=== PATIENT | male | born 1995 | race Caucasian/White ===

== ENCOUNTER 2017-08-13 09:37 | Emergency (ER) | payer OTHER, MEDICAID, SELFPAY ==
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
== END 2017-08-13 09:45 | disposition left against medical advice (07) ==
DX: H92.09 Otalgia, unspecified ear (principal)

== ENCOUNTER 2017-12-10 16:32 | Emergency (ER) | payer OTHER, MEDICAID, SELFPAY ==
[2017-12-10 16:43] VITALS: BP 125/77; PULSE 121; RESP 14; TEMP 36.9; O2SAT 100
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
[2017-12-10 17:29] VITALS: BP 111/64; PULSE 74; RESP 14; O2SAT 99
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
== END 2017-12-10 17:50 | disposition home or self-care (01) ==
PROVIDERS: Emergency Provider Emergency Medicine
DX: S09.90XA Unspecified injury of head, initial encounter (principal); S61.411A Laceration without foreign body of right hand, initial encounter; V86.55XA Driver of 3- or 4- wheeled all-terrain vehicle (ATV) injured in nontraffic accident, initial encounter
CPT/HCPCS: 12001; 70450; 71045; 72125; 99282; 99284